=== PATIENT | male | born 1975 | race Caucasian/White ===

== ENCOUNTER 2021-01-07 16:53 | Outpatient (CLI) | payer BC ==
--- NOTE | 2021-01-08 09:14 | XRAY Report ---
PROCEDURE: Toe(s) LT INDICATIONS: CONTUSION OF L GREAT TOE TECHNIQUE: 3 views of the first toe(s) acquired. COMPARISON: None FINDINGS: Bones: No fractures or dislocations. No suspicious bony lesions. Soft tissues: No suspicious soft tissue densities. IMPRESSION: No fracture or foreign body found. Reviewed by: Tarik Chopra MD on 01/08/2021 9:12 AM PDT Approved by: Tarik Chopra MD on 01/08/2021 9:12 AM PDT Station ID: [id number]
== END 2021-01-07 23:59 | disposition home or self-care (01) ==
LOC: DI.N 16:53
PROVIDERS: ATTEND Nurse Practitioner
DX: S90.112A Contusion of left great toe without damage to nail, initial encounter (principal)
CPT/HCPCS: 73660